=== PATIENT | male | born 1975 | race American Indian/Alaskan Native ===

== ENCOUNTER 2020-04-22 23:51 | Observation (INO) | payer BC ==
[2020-04-23 00:33] LABS: Basophils # (Auto) 0.1 K/mm3 (0.0-0.1); Basophils % (Auto) 0.9 % (0.0-1.8); Eosinophils # (Auto) 0.1 K/mm3 (0.0-0.4); Eosinophils % (Auto) 1.7 % (0.0-4.3); Hematocrit 42.2 % (35.5-45.6); Hemoglobin 14.8 gm/dl (11.8-15.2); Lymphocytes # (Auto) 2.1 K/mm3 (1.2-5.4); Lymphocytes % (Auto) 24.4 % (13.4-35.0); Mean Corpuscular HGB Conc 35 % (32-34); Mean Corpuscular Volume 93 fl (84-94); Monocytes % (Auto) 11.2 % (0.0-7.3); Platelet Count 124 K/mm3 (140-440); Red Blood Count 4.55 M/mm3 (3.65-5.03); Red Cell Distribution Width 12.8 % (13.2-15.2)
[2020-04-23] MEDS ORDERED: ASPIRIN 325 MG TAB PO ONE (00:33)
[2020-04-23] MEDS ORDERED: NITROGLYCERIN 2% OINT 1 GM TP ONE (00:33)
--- NOTE | 2020-04-23 00:39 | Emergency Department Report ---
HPI - General Chief Complaint: Chest Pain Time Seen by Provider: 04/23/20 00:24 - HPI HPI: Room 23 The patient is a 45-year-old male present with a chief complaint of chest pain or shortness of breath. The patient states he was lying in his bed this evening at rest stress-free when he developed shortness of breath and diaphoresis. Patient states he developed left-sided chest pain that was dull and intermittent in nature. Patient states he is never had a stress test or cardiac catheterization ED Past Medical Hx - Past Medical History Previous Medical History?: No - Surgical History Past Surgical History?: Yes Hx Appendectomy: Yes Additional Surgical History: Neck surgery 2011 - Family History Family history: no significant - Social History Smoking Status: Never Smoker Substance Use Type: None (Denies illicit drug use), Alcohol (Daily) ED Review of Systems ROS: Stated complaint: ROBERT Other details as noted in HPI Constitutional: diaphoresis Eyes: denies: eye pain ENT: denies: throat pain Respiratory: shortness of breath Cardiovascular: chest pain Endocrine: no symptoms reported Gastrointestinal: denies: nausea, vomiting Musculoskeletal: denies: back pain Neurological: denies: headache Physical Exam - Physical Exam Vital Signs: Vital Signs 04/22/20 23:55 Temperature 98.6 F Pulse Rate 98 H Respiratory 18 Rate Blood Pressure 187/97 O2 Sat by Pulse 98 Oximetry Physical Exam: GENERAL: The patient is well-developed well-nourished male lying on stretcher not appearing to be in acute distress. [] HEENT: Normocephalic. Atraumatic. Extraocular motions are intact. Patient has moist mucous membranes. NECK: Supple. Trachea midline CHEST/LUNGS: Clear to auscultation. There is no respiratory distress noted. HEART/CARDIOVASCULAR: Regular. There is no tachycardia. There is no gallop rub or murmur. ABDOMEN: Abdomen is soft, nontender. Patient has normal bowel sounds. There is no abdominal distention. SKIN: There is no rash. There is no edema. There is no diaphoresis. NEURO: The patient is awake, alert, and oriented. The patient is cooperative. The patient has normal speech MUSCULOSKELETAL: There is no evidence of acute injury. ED Course Vital Signs 04/22/20 23:55 Temperature 98.6 F Pulse Rate 98 H Respiratory 18 Rate Blood Pressure 187/97 O2 Sat by Pulse 98 Oximetry ED Medical Decision Making - Lab Data Result diagrams: 04/23/20 00:12 04/23/20 00:12 Laboratory Tests 04/23/20 04/23/20 00:12 00:12 WBC 8.6 RBC 4.55 Hgb 14.8 Hct 42.2 MCV 93 MCH 33 H MCHC 35 H RDW 12.8 L Plt Count 124 L Lymph % (Auto) 24.4 [place] % (Auto) 11.2 H Eos % (Auto) 1.7 Baso % (Auto) 0.9 Lymph # 2.1 [place] # 1.0 H Eos # 0.1 Baso # 0.1 Seg Neutrophils % 61.8 Seg Neutrophils # 5.3 Sodium 133 L Potassium 3.1 L Chloride 91.6 L Carbon Dioxide 21 L Anion Gap 24 BUN 7 L Creatinine 0.6 L Estimated GFR > 60 BUN/Creatinine Ratio 12 Glucose 257 H Calcium 9.2 Troponin T < 0.010 - EKG Data -: EKG Interpreted by Me EKG shows normal: sinus rhythm Rate: normal - EKG Data When compared to previous EKG there are: previous EKG unavailable Interpretation: nonspecific ST-T wave bruna (T wave inversion in leads 3 and aVF) - Radiology Data Radiology results: image reviewed (Chest x-ray) interpreted by me: Chest x-ray-no focal infiltrates, no pneumothorax - Differential Diagnosis ACS, pericarditis, GERD, anxiety Critical care attestation.: If time is entered above; I have spent that time in minutes in the direct care of this critically ill patient, excluding procedure time. ED Disposition Clinical Impression: Chest pain, Hyperglycemia, Hypokalemia Disposition: OP ADMIT IP TO THIS HOSP Is pt being admited?: Yes Does the pt Need Aspirin: Yes Condition: Fair Instructions: Chest Pain (ED) Referrals: PRIMARY CARE, [Primary Care Provider] - 3-5 Days Time of Disposition: 01:07 (Hospitalist paged (Dr Lerma)) JANE score - Jane Score Age > 65: (0) No Aspirin use within the Past 7 Days: (0) No 3 or more CAD Risk Factors: (0) No 2 or more Angina events in past 24 hrs: (0) No Known CAD with more than 50% Stenosis: (0) No Elevated Cardiac Markers: (0) No ST Deviation Greater than 0.5mm: (0) No JANE Score: 0
[2020-04-23 00:52] LABS: BUN/Creatinine Ratio 12; Blood Urea Nitrogen 7 mg/dL (9-20); Calcium 9.2 mg/dL (8.4-10.2); Hemolysis Index 16
[2020-04-23] MEDS ORDERED: POTASSIUM CHLORIDE ER 20 MEQ TAB PO ONE (01:02)
--- NOTE | 2020-04-23 01:37 | XRay Report ---
CHEST 1 VIEW, 04/23/2020 12:56 AM CLINICAL INFORMATION/INDICATION: Chest pain COMPARISON: None FINDINGS: SUPPORT DEVICES: None. HEART: The cardiac silhouette is normal in size. LUNGS/PLEURA: The lungs are clear of focal airspace disease or significant pleural effusion. ADDITIONAL FINDINGS: No additional acute findings. IMPRESSION: 1. No evidence of acute cardiopulmonary process. Signer Name: Nydia Weiss MD Signed: 04/23/2020 1:32 AM Workstation Name: [id number]
[2020-04-23] MEDS ORDERED: ONDANSETRON 4 MG/2 ML INJ IV PRN (01:43)
[2020-04-23] MEDS ORDERED: NITROGLYCERIN 0.4 MG TAB SUBL SL PRN (01:43)
[2020-04-23] MEDS ORDERED: MORPHINE 2 MG/1 ML INJ IV PRN (01:43)
[2020-04-23] MEDS ORDERED: ACETAMINOPHEN 325 MG TAB PO PRN (01:43)
[2020-04-23] MEDS ORDERED: MAGNESIUM HYDROXIDE (MOM) ORAL LIQD UDC PO PRN (01:43)
--- NOTE | 2020-04-23 04:17 | History and Physical Report ---
History of Present Illness Date of examination: 04/23/20 Date of admission: 04/23/20 01:43 Chief complaint: Chest pain History of present illness: 45-year-old male presenting to the emergency room today complaining of chest pain. He has no significant past medical problems. Patient indicates that was lying on his bed and suddenly started having chest pain. Chest pain is said to be left-sided, intermittent and felt like pressure. There is no known relieving or exacerbating factor. He had associated shortness of breath and was also diaphoretic. Denies any fever or chills, no nausea vomiting and no abdominal pain. Patient denies any sick contacts and no recent travel.. Evaluation in the emergency room was significant for hypokalemia and hyperglycemia. Past History Past Medical History: No medical history Past Surgical History: appendectomy, Other (Neck surgery in 2011) Social history: alcohol abuse (Patient alcohol) Family history: no significant family history Medications and Allergies Allergies Allergy/AdvReac Type Severity Reaction Status Date / Time No Known Allergies Allergy Verified 04/23/20 01:58 Active Meds: Active Medications Acetaminophen (Tylenol) 650 mg PO Q4H PRN PRN Reason: Pain MILD(1-3)/Fever >100.5/EDMONDS Aspirin (Ecotrin) 325 mg PO QDAY SVETA Heparin Sodium (Porcine) (Heparin) 5,000 unit SUB-Q Q8HR SVETA Magnesium Hydroxide (Milk Of Magnesia) 30 ml PO Q4H PRN PRN Reason: Constipation Morphine Sulfate (Morphine) 2 mg IV Q5MIN PRN PRN Reason: Chest Pain unrelieved by NTG Nitroglycerin (Nitrostat) 0.4 mg SL Q5M PRN PRN Reason: Chest Pain Ondansetron HCl (Zofran) 4 mg IV Q8H PRN PRN Reason: Nausea And Vomiting Sodium Chloride (Sodium Chloride Flush Syringe 10 Ml) 10 ml IV BID SVETA Sodium Chloride (Sodium Chloride Flush Syringe 10 Ml) 10 ml IV PRN PRN PRN Reason: LINE FLUSH Review of Systems Constitutional: no fever, no chills Cardiovascular: chest pain, no palpitations, no syncope Respiratory: no cough, no shortness of breath Gastrointestinal: no abdominal pain, no nausea, no vomiting, no diarrhea Genitourinary Male: no dysuria, no hematuria Musculoskeletal: no neck pain, no low back pain Integumentary: no rash, no pruritis Neurological: no headaches, no confusion Psychiatric: no anxiety, no depression Exam - Constitutional Vitals: Temp Pulse Resp BP Pulse Ox 98.6 F 85 13 159/87 94 04/22/20 23:55 04/23/20 02:00 04/23/20 02:00 04/23/20 02:00 04/23/20 02:00 General appearance: Present: no acute distress, well-nourished - EENT Eyes: Present: PERRL, EOM intact ENT: hearing intact, clear oral mucosa, dentition normal - Neck Neck: Present: normal ROM - Respiratory Respiratory effort: normal Respiratory: bilateral: CTA - Cardiovascular Rhythm: regular Heart Sounds: Present: S1 & S2 - Extremities Extremities: no ischemia, pulses intact, pulses symmetrical, No edema, Full ROM Peripheral Pulses: within normal limits - Abdominal General gastrointestinal: Present: soft, non-tender, non-distended - Integumentary Integumentary: Present: clear, warm, dry - Musculoskeletal Musculoskeletal: strength equal bilaterally - Psychiatric Psychiatric: appropriate mood/affect, intact judgment & insight, cooperative - Neurologic Neurologic: CNII-XII intact, moves all extremities HEART Score - HEART Score Troponin: Troponin T < 0.010 ng/mL (0.00-0.029) 04/23/20 00:12 Results - Labs CBC & Chem 7: 04/23/20 03:31 04/23/20 03:31 Labs: Abnormal lab results 04/23/20 04/23/20 Range/Units 00:12 00:12 MCH 33 H (28-32) pg MCHC 35 H (32-34) % RDW 12.8 L (13.2-15.2) % Plt Count 124 L (140-440) K/mm3 [place] % (Auto) 11.2 H (0.0-7.3) % [place] # 1.0 H (0.0-0.8) K/mm3 Sodium 133 L (137-145) mmol/L Potassium 3.1 L (3.6-5.0) mmol/L Chloride 91.6 L (98-107) mmol/L Carbon Dioxide 21 L (22-30) mmol/L BUN 7 L (9-20) mg/dL Creatinine 0.6 L (0.8-1.5) mg/dL Glucose 257 H (75-100) mg/dL Assessment and Plan - Patient Problems (1) Chest pain Current Visit: Yes Status: Acute Plan to address problem: Patient admitted and placed on telemetry, will check serial cardiac enzymes. Pa tient be placed on daily aspirin, sublingual nitroglycerin and morphine as needed for chest pain. We will schedule patient for stress test. (2) Hypokalemia Current Visit: Yes Status: Acute Plan to address problem: Potassium will be repleted and will monitor chemistry. (3) Hyperglycemia Current Visit: Yes Status: Acute Plan to address problem: Patient does not have any history of diabetes mellitus. Will check hemoglobin A1c and monitor blood glucose. (4) DVT prophylaxis Current Visit: Yes Status: Acute Plan to address problem: Patient placed on subcutaneous heparin. (5) Full code status Current Visit: Yes Status: Acute
[2020-04-23 04:36] LABS: Basophils % (Auto) 0.6 % (0.0-1.8); Eosinophils # (Auto) 0.1 K/mm3 (0.0-0.4); Eosinophils % (Auto) 0.8 % (0.0-4.3); Hematocrit 39.2 % (35.5-45.6); Hemoglobin 13.8 gm/dl (11.8-15.2); Lymphocytes # (Auto) 1.3 K/mm3 (1.2-5.4); Lymphocytes % (Auto) 15.5 % (13.4-35.0); Mean Corpuscular HGB Conc 35 % (32-34); Mean Corpuscular Volume 93 fl (84-94); Monocytes # (Auto) 0.8 K/mm3 (0.0-0.8); Monocytes % (Auto) 9.2 % (0.0-7.3); Platelet Count 117 K/mm3 (140-440); Red Blood Count 4.23 M/mm3 (3.65-5.03); Red Cell Distribution Width 12.7 % (13.2-15.2)
[2020-04-23 04:48] LABS: BUN/Creatinine Ratio 15; Blood Urea Nitrogen 9 mg/dL (9-20); Calcium 8.7 mg/dL (8.4-10.2); Hemolysis Index 9
[2020-04-23 04:49] LABS: Chol/HDL Ratio 2.41 %
[2020-04-23] MEDS: HEPARIN 5,000 UNIT/1 ML VIAL SUB-Q SCH ×2 (06:08→15:16)
[2020-04-23] MEDS ORDERED: REGADENOSON 0.4 MG/5 ML INJ IV ONE ×2 (07:47→07:56)
--- NOTE | 2020-04-23 11:07 | Consultation ---
History of Present Illness Consult date: 04/23/20 Requesting physician: DWAINE MUNOZ Consult reason: chest pain History of present illness: 47-year-old patient suspected elevated blood pressure came in last night for midsternal chest pain nonradiating also feeling short of breath patient received blood pressure medicines feeling better. Patient states last week was able to walk and do daily activities without issue. No fever no chills no syncope no palpitations no melena or seizure type activity Past History Past Medical History: No medical history Past Surgical History: appendectomy, Other (Neck surgery in 2011) Social history: alcohol abuse (Patient alcohol) Family history: no significant family history Medications and Allergies Allergies Allergy/AdvReac Type Severity Reaction Status Date / Time No Known Allergies Allergy Verified 04/23/20 01:58 Active Meds: Active Medications Acetaminophen (Tylenol) 650 mg PO Q4H PRN PRN Reason: Pain MILD(1-3)/Fever >100.5/EDMONDS Last Admin: 04/23/20 06:08 Dose: 650 mg Documented by: Aspirin (Ecotrin) 325 mg PO QDAY [facility] Heparin Sodium (Porcine) (Heparin) 5,000 unit SUB-Q Q8HR [facility] Last Admin: 04/23/20 06:08 Dose: 5,000 unit Documented by: Magnesium Hydroxide (Milk Of Magnesia) 30 ml PO Q4H PRN PRN Reason: Constipation Morphine Sulfate (Morphine) 2 mg IV Q5MIN PRN PRN Reason: Chest Pain unrelieved by NTG Nitroglycerin (Nitrostat) 0.4 mg SL Q5M PRN PRN Reason: Chest Pain Ondansetron HCl (Zofran) 4 mg IV Q8H PRN PRN Reason: Nausea And Vomiting Sodium Chloride (Sodium Chloride Flush Syringe 10 Ml) 10 ml IV BID SVETA Sodium Chloride (Sodium Chloride Flush Syringe 10 Ml) 10 ml IV PRN PRN PRN Reason: LINE FLUSH Review of Systems All systems: negative (as per hpi) Physical Examination Vital Signs Temp Pulse Resp BP Pulse Ox 98.6 F 98 H 18 187/97 98 04/22/20 23:55 04/22/20 23:55 04/22/20 23:55 04/22/20 23:55 04/22/20 23:55 General appearance: no acute distress, well-nourished HEENT: Positive: PERRL, Mucus Membranes Moist Neck: Positive: neck supple, trachea midline Cardiac: Positive: Reg Rate and Rhythm, S1/S2. Negative: Audible Murmur Lungs: Positive: clear to auscultation, Normal Breath Sounds Neuro: Positive: Grossly Intact Abdomen: Positive: Soft, Active Bowel Sounds. Negative: Tender, Distended Male genitourinary: Positive: normal Skin: Positive: Clear Incision: Cardiac Cath Site Musculoskeletal: No Pain, Normal Range of Motion Extremities: Present: normal. Absent: edema Results 04/23/20 03:31 04/23/20 03:31 Lipids 04/23/20 Range/Units 03:31 Triglycerides 133 (2-149) mg/dL Cholesterol 229 H (50-199) mg/dL HDL Cholesterol 95 H (40-59) mg/dL Cholesterol/HDL Ratio 2.41 % CBC 04/23/20 04/23/20 Range/Units 00:12 03:31 WBC 8.6 8.4 (4.5-11.0) K/mm3 RBC 4.55 4.23 (3.65-5.03) M/mm3 Hgb 14.8 13.8 (11.8-15.2) gm/dl Hct 42.2 39.2 (35.5-45.6) % Plt Count 124 L 117 L (140-440) K/mm3 Lymph # 2.1 1.3 (1.2-5.4) K/mm3 [place] # 1.0 H 0.8 (0.0-0.8) K/mm3 Eos # 0.1 0.1 (0.0-0.4) K/mm3 Baso # 0.1 0.0 (0.0-0.1) K/mm3 Comprehensive Metabolic Panel 04/23/20 04/23/20 Range/Units 00:12 03:31 Sodium 133 L 135 L (137-145) mmol/L Potassium 3.1 L 3.6 (3.6-5.0) mmol/L Chloride 91.6 L 94.7 L (98-107) mmol/L Carbon Dioxide 21 L 25 (22-30) mmol/L BUN 7 L 9 (9-20) mg/dL Creatinine 0.6 L 0.6 L (0.8-1.5) mg/dL Glucose 257 H 264 H (75-100) mg/dL Calcium 9.2 8.7 (8.4-10.2) mg/dL - Imaging and Cardiology Stress echo: pending Echo: pending EKG interpretations - Telemetry EKG Rhythm: Sinus Rhythm (Normal sinus rhythm nonspecific ST-T's) Assessment and Plan Patient had a Lexiscan nuclear stress test results are normal and echocardiogram normal LV function without significant regurgitation. Patient needs blood pressure control may be discharged from cardiovascular point of view chest pain and shortness of breath are atypical in nature probably from elevated blood pressure - Patient Problems (1) Hypertension Current Visit: Yes Status: Acute (2) Chest pain Current Visit: Yes Status: Acute (3) Hyperglycemia Current Visit: Yes Status: Acute (4) Hypokalemia Current Visit: Yes Status: Acute
--- NOTE | 2020-04-23 12:49 | Discharge Summary ---
Providers - Providers Date of Admission: 04/23/20 01:43 Attending physician: DWAINE MUNOZ 04/23/20 Consult to Cardiac Rehabilitation [CONS] Routine Reason For Exam: Phase I 04/23/20 01:45 Consult to Cardiology [CONS] Routine Consulting Provider: ADELA MCKEON Reason For Exam: chest pain Primary care physician: LABOR AND DELIVERY NURSE Hospitalization Condition: Good Pertinent studies: Stress test: Negative for acute ischemia. Hospital course: 45-year-old male presenting to the emergency room today complaining of chest pain. Patient seen and evaluated in the emergency department. Lab and imaging studies reviewed. Patient admitted to telemetry and initiated on chest pain protocol. Serial cardiac enzymes, EKG and telemetry monitoring were unremarkable. Patient underwent stress test which was negative for ischemia. Patient also found to have accelerated hypertension and initiated on antihypertensive therapy. Patient medically optimized and back to usual state of health and subsequently discharged home. Patient seen and evaluated prior to discharge but no significant physical exam findings. Patient counseled regarding increase physical activity, balanced diet, and outpatient sleep study PRN. 35 minutes dedicated to patient discharge and coordination of care. Disposition: DC- TO HOME OR SELFCARE - Discharge Diagnoses (1) Chest pain Status: Acute (2) DVT prophylaxis Status: Acute (3) Hypertension Status: Acute Core Measure Documentation - Palliative Care Palliative Care/ Comfort Measures: Not Applicable - Core Measures Any of the following diagnoses?: none Exam - Constitutional Vitals: Temp Pulse Resp BP Pulse Ox 98.3 F 89 18 193/97 94 04/23/20 07:20 04/23/20 09:00 04/23/20 02:55 04/23/20 10:48 04/23/20 09:00 General appearance: Present: no acute distress, well-nourished, obese - EENT Eyes: Present: PERRL ENT: hearing intact, clear oral mucosa - Neck Neck: Present: supple, normal ROM - Respiratory Respiratory effort: normal Respiratory: bilateral: CTA - Cardiovascular Heart Sounds: Present: S1 & S2. Absent: rub, click - Extremities Extremities: pulses symmetrical, No edema Peripheral Pulses: within normal limits - Abdominal General gastrointestinal: Present: soft, non-tender, non-distended, normal bowel sounds Male genitourinary: Present: normal - Integumentary Integumentary: Present: clear, warm, dry - Musculoskeletal Musculoskeletal: gait normal, strength equal bilaterally - Psychiatric Psychiatric: appropriate mood/affect, intact judgment & insight - Neurologic Neurologic: CNII-XII intact, moves all extremities Plan Activity: advance as tolerated Diet: low fat, low cholesterol, low salt Special Instructions: record daily weights, record daily BP diary Follow up with: PRIMARY CARE, [Primary Care Provider] - 3-5 Days Forms: Work/School Release Form Prescriptions: amLODIPine 10 mg PO DAILY #30 tab hydroCHLOROthiazide [Hctz] 12.5 mg PO QDAY #30 capsule Lisinopril [Zestril] 5 mg PO DAILY #30 tablet
[2020-04-23] MEDS ORDERED: LISINOPRIL 5 MG TAB PO SCH (13:00)
[2020-04-23] MEDS ORDERED: amLODIPine 10 MG TAB PO SCH (13:00)
[2020-04-23] MEDS ORDERED: hydrALAZINE 20 MG/1 ML INJ IV ONE ×2 (13:00→16:00)
--- NOTE | 2020-04-23 13:38 | Treadmill Report ---
NUCLEAR PERFUSION STUDY IMAGING PROTOCOL: The patient received 10 mCi of Technetium 99m Tetrofosmin for resting image and 28 mCi of Technetium 99m Tetrofosmin for stress imaging. The imaging for the whole procedure was completed 30-90 minutes following the initial injection of Technetium 99m Tetrofosmin. The SPECT imaging in the 180 degree arc was performed in the right anterior oblique projection. Computerized reconstruction of the images was performed for analysis. IMAGING RESULTS: Normal cavity size from stress to rest. Normal distribution of radionuclide in the anterior, inferior, septal, and apical regions. Gated SPECT, EF 60% with no wall motion abnormality. The patient infused Lexiscan with no EKG changes. SUMMARY: 1. Negative Lexiscan EKG. 2. Normal rest and stress myocardial perfusion scan. No significant ischemia. No wall motion abnormality. Gated SPECT, EF 60%. JOB# [id number]
[2020-04-23 15:32] VITALS: BP 169/83
[2020-04-24] MEDS ORDERED: ASPIRIN EC 325 MG TAB PO SCH (10:00)
== END 2020-04-23 18:30 | disposition home or self-care (01) ==
LOC: ED 23:51 → INTOOBSV 04-23 01:43 → 4A 04-23 01:43
PROVIDERS: ADMIT Internal Medicine Geriatric Medicine; ATTEND Internal Medicine
DX: R07.89 Other chest pain (principal); E87.6 Hypokalemia; I10 Essential (primary) hypertension; R73.9 Hyperglycemia, unspecified; Z90.49 Acquired absence of other specified parts of digestive tract
CPT/HCPCS: 36415; 71045; 78452; 80048; 80061; 83036; 84484; 85025; 93005; 93017; 93306; 96372; 96374; 99285; A9502; G0378; J0360; J1644; J2785